=== PATIENT | female | born 1985 | race Caucasian/White ===

== ENCOUNTER 2016-07-03 04:30 | Inpatient (IN) | payer OTHER, MEDICAID ==
[~2016-07-03] VITALS: Ht 162.6 cm; Wt 99.8 kg
[2016-07-03] MEDS ORDERED: LR 1,000 ML IV SCH (05:09)
[2016-07-03] MEDS ORDERED: LR 1,000 ML IV ONE (05:09)
[2016-07-03] MEDS ORDERED: OXYTOCIN/NORMAL SALINE 1,000 ML IV SCH ×2 (05:09→06:50)
[2016-07-03] MEDS ORDERED: CLINDAMYCIN 900 mg/50mL D5W 50 ML IV SCH (05:15)
[2016-07-03] MEDS ORDERED: NALBUPHINE HCL 10 MG/ML AMP IVP PRN (05:15)
[2016-07-03] MEDS ORDERED: TERBUTALINE SULFATE 1 MG/ML VIAL SUBCUT ONE (05:15)
[2016-07-03] MEDS ORDERED: CLINDAMYCIN 900 mg/50mL D5W 50 ML IV ONE (05:26)
[2016-07-03 05:30] VITALS: BP 111/59; PULSE 99; RESP 19; TEMP 98
[2016-07-03 05:56] LABS: BASOPHILS % (AUTO) 0.4 % (0.0-2.0); EOSINOPHILS % (AUTO) 0.4 % (0.0-4.0); HEMATOCRIT 31.6 % (36-48); HEMOGLOBIN 10.7 g/dL (12.0-16.0); LYMPHOCYTES # (AUTO) 2.2 K/uL (1.0-5.5); MEAN CORPUSCULAR HEMOGLOBIN 30 pg (27-31); MEAN CORPUSCULAR HGB CONC 34 % (32-36); MEAN CORPUSCULAR VOLUME 89 fL (79.0-98.0); MONOCYTES # (AUTO) 0.3 K/uL (0.0-1.0); MONOCYTES % (AUTO) 2.4 % (1.7-9.3); NEUTROPHILS # (AUTO) 9.1 K/uL (1.8-7.7); NEUTROPHILS % (AUTO) 77.8 % (40.0-70.0); PLATELET COUNT (AUTO) 217 K/uL (130-430); RED BLOOD CELL COUNT(AUTO) 3.54 MIL/uL (4.2-6.2); RED CELL DISTRIBUTION WIDTH 13.3 % (9.0-15.0); WHITE BLOOD COUNT (AUTO) 11.6 K/uL (4.8-10.8)
[2016-07-03] MEDS ORDERED: fentaNYL CITRATE/PF 100 MCG/2 ML AMP ONE (06:05)
[2016-07-03] MEDS ORDERED: FENT2mCg/mL-ROPIVA0.2%/NS EPID 150 ML EP ONE (06:06)
[2016-07-03] MEDS ORDERED: OXYTOCIN/NORMAL SALINE 1,000 ML IV ONE (06:50)
[2016-07-03] MEDS ORDERED: ACETAMINOPHEN 325 MG TABLET PO PRN (07:00)
[2016-07-03] MEDS ORDERED: MEASLES,MUMPS&RUBELLA VACC/PF 12500 UNIT/0.5 ML VIAL SUBQ PRN (07:00)
[2016-07-03] MEDS ORDERED: DOCUSATE SODIUM 100 MG CAPSULE PO PRN (07:00)
[2016-07-03] MEDS ORDERED: GLYCERIN/WITCH HAZEL (TUCKS PADS) TP PRN (07:00)
[2016-07-03] MEDS ORDERED: OXYCODONE/ACETAMINOPHEN 5-325 TABLET PO PRN ×2 (07:00)
[2016-07-03] MEDS ORDERED: SENNOSIDES/DOCUSATE SODIUM 1 TAB TABLET(SENOKOT-S) PO PRN (07:00)
[2016-07-03] MEDS ORDERED: ePHEDrine sulfate 50 MG/ML VIAL IVP ONE (07:00)
[2016-07-03] MEDS ORDERED: METHYLERGONOVINE MALEATE 0.2 MG TABLET PO PRN (07:00)
[2016-07-03] MEDS ORDERED: HYDROCORTISONE 0.5%, 28.35 GM TOPICAL CREAM TP PRN (07:00)
[2016-07-03] MEDS ORDERED: ANUSOL 1 EA SUPP.RECT (PREPARATION H) RC PRN (07:00)
[2016-07-03] MEDS ORDERED: DERMOPLAST SPRAY TP PRN (07:00)
[2016-07-03] MEDS ORDERED: RHO(D) IMMUNE GLOBULIN/MALTOSE 1500 UNITS/1.3 ML (WINHRO) IM PRN (07:00)
[2016-07-03] MEDS ORDERED: LANOLIN 7 GM OINT. TP PRN (07:00)
[2016-07-03] MEDS: IBUPROFEN 600 MG TABLET PO SCH ×2 (12:56→17:37)
[2016-07-03] MEDS ORDERED: IBUPROFEN 600 MG TABLET PO ONE (13:00)
[2016-07-03] MEDS ORDERED: MINERAL OIL 30 ML UDC PO ONE (16:30)
[2016-07-03] MEDS ORDERED: TEMAZEPAM 15 MG CAPSULE PO PRN (21:00)
[2016-07-04] MEDS: IBUPROFEN 600 MG TABLET PO SCH (00:17)
[2016-07-04 06:57] LABS: HEMATOCRIT 34.9 % (36-48); HEMOGLOBIN 11.7 g/dL (12.0-16.0)
== END 2016-07-04 11:35 | disposition home or self-care (01) | DRG 775 ==
LOC: SPU 04:30
PROVIDERS: ADMIT Obstetrics & Gynecology; ATTEND Obstetrics & Gynecology
PROC: 3E0S3CZ (ICD-10-PCS; principal; 2016-07-03)
PROC: 00HU33Z Insertion of Infusion Device into Spinal Canal, Percutaneous Approach (ICD-10-PCS; 2016-07-03)
DX: O99.824 Streptococcus B carrier state complicating childbirth (principal); Z37.0 Single live birth; Z3A.38 38 weeks gestation of pregnancy
CPT/HCPCS: 36415; 81002-TC; 85018-TC; 85025; 86592; 86886; 86900; 86901; J3010; J3490